=== PATIENT | male | born 2005 | race Two or more races ===

== ENCOUNTER 2024-08-22 06:04 | Day surgery (SDC) | payer BC ==
[2024-08-18 13:48] VITALS: BMI 23.1
[2024-08-22] MEDS ORDERED: Ondansetron PF 4 MG/2 ML Vial ONE (06:49)
[2024-08-22] MEDS ORDERED: Lidocaine 1% PF 5 ML VIAL ONE (06:49)
[2024-08-22] MEDS ORDERED: Dexamethasone 4 mg/ml Vial ONE (06:49)
[2024-08-22] MEDS ORDERED: Fentanyl 250 MCG/5 ML VIAL ONE (06:49)
[2024-08-22] MEDS ORDERED: PROPOFOL 20 ML ONE (06:49)
[2024-08-22] MEDS ORDERED: Bupivacaine HCl 0.5%/Epinephrine 1:200,000/PF 30 ml Vial ONE (06:51)
[2024-08-22] MEDS ORDERED: Sevoflurane 250 ML INH ANEST BOTTLE ONE (06:53)
[2024-08-22] MEDS ORDERED: Dexmedetomidine 200 MCG/2 ML VIAL ONE (06:53)
[2024-08-22] MEDS ORDERED: Sterile Water 10 ML ONE (06:57)
[2024-08-22] MEDS ORDERED: CEFAZOLIN 2 GM VIAL ONE (07:18)
[2024-08-22] MEDS ORDERED: Ketorolac Tromethamine 30 MG (1 mL) VIAL ONE (08:15)
[2024-08-22] MEDS ORDERED: HYDROcodone/Acetaminophen 5/325 mg Tablet ONE (08:58)
== END 2024-08-22 09:15 | disposition home or self-care (01) ==
LOC: CSHSDC 06:04
PROVIDERS: ATTEND Surgery
PROC: 0JQD0ZZ Repair Right Upper Arm Subcutaneous Tissue and Fascia, Open Approach (ICD-10-PCS; principal; 2024-08-22)
PROC: 0JBD0ZZ Excision of Right Upper Arm Subcutaneous Tissue and Fascia, Open Approach (ICD-10-PCS; principal; 2024-08-22)
DX: D48.115 Desmoid tumor of upper extremity and shoulder girdle (principal); R22.31 Localized swelling, mass and lump, right upper limb
CPT/HCPCS: 88307; 88341; 88342; 88360; J1100; J1885; J2405; J2704; J3010